=== PATIENT | female | born 1950 | race Caucasian/White ===

== ENCOUNTER 2017-09-18 08:18 | Day surgery (SDC) | payer MEDICARE ==
[~2017-09-18 08:18] MED LIST: [UNRECOGNIZED DRUG - REMARK]
== END 2017-09-18 22:45 | disposition home or self-care (01) ==
LOC: MOI US 08:18
PROC: BH00ZZZ Plain Radiography of Right Breast (ICD-10-PCS; principal; 2017-09-18)
DX: C50.411 Malignant neoplasm of upper-outer quadrant of right female breast (principal); C50.919 Malignant neoplasm of unspecified site of unspecified female breast
CPT/HCPCS: 19285; 77065

== ENCOUNTER 2017-09-22 07:42 | Day surgery (SDC) | payer MEDICARE ==
[~2017-09-22] VITALS: Ht 154.9 cm; Wt 87.1 kg
== END 2017-09-22 15:05 | disposition home or self-care (01) ==
LOC: ORSCMMR 07:42 → NM 07:42 → ORSCMMR 07:43 → NM 08:30 → ORSCMMR 15:05
PROVIDERS: Surgery
PROC: 0HBT0ZZ Excision of Right Breast, Open Approach (ICD-10-PCS; principal; 2017-09-22 10:30)
PROC: 07B50ZX Excision of Right Axillary Lymphatic, Open Approach, Diagnostic (ICD-10-PCS; principal; 2017-09-22 10:30)
DX: C50.411 Malignant neoplasm of upper-outer quadrant of right female breast (principal); C77.3 Secondary and unspecified malignant neoplasm of axilla and upper limb lymph nodes; E66.01 Morbid (severe) obesity due to excess calories; Z68.36 Body mass index [BMI] 36.0-36.9, adult
CPT/HCPCS: 78195; 88307; 88333; A9520; J0690; J1100; J2250; J2405; J3010; J7120; Q9968

== ENCOUNTER 2017-10-07 06:51 | Day surgery (SDC) | payer MEDICARE | END 2017-10-07 22:42 | disposition home or self-care (01) | LOC: ORSCMMR 06:51 → ORD 08:30 → ORSCMMR 08:30 | PROVIDERS: Surgery | PROC: B5181ZA Fluoroscopy of Superior Vena Cava using Low Osmolar Contrast, Guidance (ICD-10-PCS; principal; 2017-10-07 08:30) | PROC: 02HV33Z Insertion of Infusion Device into Superior Vena Cava, Percutaneous Approach (ICD-10-PCS; principal; 2017-10-07 08:30) | DX: C50.411 Malignant neoplasm of upper-outer quadrant of right female breast (principal); C77.3 Secondary and unspecified malignant neoplasm of axilla and upper limb lymph nodes; E66.01 Morbid (severe) obesity due to excess calories; Z68.36 Body mass index [BMI] 36.0-36.9, adult | CPT/HCPCS: 77001; C1788; J0690; J1642; J2250; J2405; J3010; J7120 ==

== ENCOUNTER 2017-10-13 11:17 | Day surgery (SDC) | END 2017-10-13 22:50 | disposition home or self-care (01) ==

== ENCOUNTER 2017-10-17 07:49 | Day surgery (SDC) | payer MEDICARE ==
[~2017-10-17] VITALS: Ht 157.5 cm; Wt 83.0 kg
== END 2017-10-17 11:40 | disposition home or self-care (01) ==
LOC: ORSCSDS 07:49
PROVIDERS: Surgery
PROC: B2141ZZ Fluoroscopy of Right Heart using Low Osmolar Contrast (ICD-10-PCS; principal; 2017-10-17 09:30)
PROC: 02H633Z Insertion of Infusion Device into Right Atrium, Percutaneous Approach (ICD-10-PCS; principal; 2017-10-17 09:30)
DX: C50.411 Malignant neoplasm of upper-outer quadrant of right female breast (principal); Z45.2 Encounter for adjustment and management of vascular access device
CPT/HCPCS: 77001; C1788; J0690; J1100; J1642; J2250; J7120

== ENCOUNTER → 2017-10-20 | Outpatient (CLI) | payer MEDICARE ==
[2017-10-20 11:14] LABS: BASOPHILS ABSOLUTE AUTO 0.02 K/mm3 (0.00-0.23); BASOPHILS PERCENT AUTO 0 % (0-2); EOSINOPHILS ABSOLUTE AUTO 0.09 K/mm3 (0.00-0.68); EOSINOPHILS PERCENT AUTO 1 % (0-6); Hematocrit 43.1 % (33.0-51.0); Hemoglobin 13.9 g/dL (11.5-16.0); IMMATURE GRAN ABSOLUTE AUTO 0.02 K/mm3 (0.00-0.10); IMMATURE GRAN PERCENT AUTO 0 % (0-1); LYMPHOCYTES ABSOLUTE AUTO 1.61 K/mm3 (0.84-5.20); LYMPHOCYTES PERCENT AUTO 24 % (21-46); MONOCYTES PERCENT AUTO 7 % (4-13); Mean Corpuscular HGB 29.3 pg (26.0-34.0); Mean Corpuscular HGB Conc 32.3 g/dL (31.5-36.5); Mean Corpuscular Volume 91 fL (80-100); Mean Platelet Volume 11.3 fL (9.1-12.4); NEUTROPHILS ABSOLUTE AUTO 4.51 K/mm3 (1.96-9.15); NEUTROPHILS PERCENT AUTO 67 % (41-73); Platelet Count 192 K/mm3 (150-400); RDW Coefficient Variation 13.2 % (11.7-14.2); RDW Standard Deviation 44.1 fL (35.1-46.3); Red Blood Cell Count 4.74 M/mm3 (3.80-5.20); White Blood Cell Count 6.75 K/mm3 (4.00-11.30)
[2017-10-20 11:38] LABS: Alanine Aminotransfer (ALT/SGP 19 U/L (12-78); Albumin, Blood 3.5 g/dL (3.4-5.0); Alk Phos 78 U/L (50-136); Anion Gap 8 mmol/L (6-16); Aspartate Aminotrans (AST/SGOT 12 U/L (12-37); Bilirubin, Total 0.7 mg/dL (0.1-1.0); Blood Urea Nitrogen 14 mg/dL (8-24); CO2, Blood 26 mmol/L (21-32); Calcium, Blood 8.9 mg/dL (8.5-10.1); Chloride, Blood 106 mmol/L (98-108); Globulin, Blood 3.6 g/dL (2.2-4.0); Glucose, Blood 150 mg/dL (70-99); Potassium, Blood 3.8 mmol/L (3.5-5.5); Sodium, Blood 140 mmol/L (136-145); Total Protein, Blood 7.1 g/dL (6.4-8.2)
[2017-10-20 11:40] LABS: Bun/Creatinine Ratio 20.6 (12.0-20.0); Creatinine, Blood 0.68 mg/dL (0.40-1.00); Glomerular Filtration Rate >60 (60-)
== END ==
LOC: LAB 10:25
PROVIDERS: Internal Medicine Hematology & Oncology
DX: C50.411 Malignant neoplasm of upper-outer quadrant of right female breast (principal); Z17.0 Estrogen receptor positive status [ER+]
CPT/HCPCS: 80053; 85025

== ENCOUNTER 2020-02-08 12:09 | Day surgery (SDC) | payer MEDICARE ==
[~2020-02-08] VITALS: Ht 157.5 cm; Wt 71.9 kg
[2020-02-08] MEDS ORDERED: ANASTROZOLE5 GM (12:49)
[2020-02-08] MEDS ORDERED: ATOR10 (12:49)
[2020-02-08] MEDS ORDERED: METF500 (12:49)
[2020-02-08] MEDS ORDERED: ERGO50000 (12:50)
== END 2020-02-08 14:40 | disposition home or self-care (01) ==
LOC: ORSCSDS 12:09
PROVIDERS: Surgery
PROC: 0DBM8ZX Excision of Descending Colon, Via Natural or Artificial Opening Endoscopic, Diagnostic (ICD-10-PCS; principal; 2020-02-08 13:30)
DX: Z12.11 Encounter for screening for malignant neoplasm of colon (principal); D12.4 Benign neoplasm of descending colon; K63.89 Other specified diseases of intestine; K57.30 Diverticulosis of large intestine without perforation or abscess without bleeding; Z85.3 Personal history of malignant neoplasm of breast; Z79.899 Other long term (current) drug therapy
CPT/HCPCS: 82947; 88305; J2704; J7120